=== PATIENT | female | born 1995 ===

== ENCOUNTER 2022-12-18 08:28 | Emergency (ER) | payer SELFPAY ==
[~2022-12-18] VITALS: Ht 162.6 cm; Wt 50.0 kg
[2022-12-18 09:48] LABS: ALANINE AMINOTRANSFERASE 22 U/L (12-78); ALBUMIN 4.6 G/DL (3.4-5.0); ALBUMIN/GLOBULIN RATIO 1.1 (1.1-1.5); ALKALINE PHOSPHATASE 73 IU/L (46-116); ANION GAP 19 (8-16); ASPARTATE AMINO TRANSFERASE 29 U/L (10-37); BILIRUBIN,TOTAL 0.8 MG/DL (0.1-1.0); BLOOD UREA NITROGEN 5 MG/DL (7-18); BUN/CREATININE RATIO 7.1 (10.0-20.0); CALCIUM 10.1 MG/DL (8.5-10.1); CHLORIDE 102 MMOL/L (99-107); GLUCOSE 151 MG/DL (70-104); LIPASE 133 U/L (73-393); SODIUM 139 MMOL/L (135-145); TOTAL CARBON DIOXIDE 17.6 MMOL/L (24-32); TOTAL PROTEIN 8.8 G/DL (6.4-8.2); eGFR > 90 ML/MIN
[2022-12-18 09:51] LABS: POTASSIUM 2.9 MMOL/L (3.5-5.1)
[2022-12-18 10:30] LABS: BASOPHILS % (AUTO) 0.1 % (0-1); EOSINOPHILS % (AUTO) 0 % (0-6); HEMATOCRIT 42.7 % (35.0-45.0); LYMPHOCYTES # (AUTO) 0.8 X10'3 (1.1-4.8); LYMPHOCYTES % (AUTO) 6.5 % (21-51); MEAN CORPUSCULAR HEMOGLOBIN 29.2 PG (27.0-31.0); MEAN CORPUSCULAR HGB CONC 32.9 g/dL (33.0-36.5); MEAN CORPUSCULAR VOLUME 88.9 FL (78-98); MEAN PLATELET VOLUME 8.4 FL (7.4-10.4); MONOCYTES # (AUTO) 0.3 X10'3 (0-0.9); MONOCYTES % (AUTO) 2.7 % (2-12); NEUTROPHILS # (AUTO) 11.1 X10'3 (1.8-7.7); NEUTROPHILS % (AUTO) 90.7 % (42-75); PLATELET COUNT 312 X10'3 (140-440); RED CELL DISTRIBUTION WIDTH 13.4 % (11.5-14.5); WHITE BLOOD COUNT 12.2 X10'3 (4.5-11.0)
[2022-12-18] MEDS ORDERED: CAPSAICIN 56.6 GM CREAM..G. TP STA (11:01)
[2022-12-18] MEDS ORDERED: haloperidol lactate 5mg/ml inj IM ONE (11:05)
[2022-12-18] MEDS ORDERED: potassium Cl 40MEQ/1/2NS 520ml 520 ML IV ONE (11:05)
[2022-12-18] MEDS ORDERED: LORazepam 2 mg/ml vial IV ONE (11:05)
[2022-12-18] MEDS ORDERED: potassium Cl 20 mEq SR tablet PO ONE (11:05)
[2022-12-18] MEDS ORDERED: normal saline 1000ML IV soln IV ONE (11:05)
[2022-12-18] MEDS ORDERED: ondansetron/PF 4mg/2ml inj IV ONE (11:05)
--- NOTE | 2022-12-18 11:28 | NUR ---
Updated Patient's mother Judith. Informed patients boyfriend to update mother of patient as needed
[2022-12-18 11:59] LABS: CLARITY,URINE SLIGHTLY CLOUDY (Clear); COLOR,URINE YELLOW (Yellow); GLUCOSE, URINE NEGATIVE (Neg); KETONES,URINE >=80 mg/dl (Neg); LEUKOCYTE ESTERASE ,URINE NEGATIVE (Neg); NITRITES, URINE NEGATIVE (Neg); OCCULT BLOOD,URINE SMALL (Neg); PROTEIN,URINE 30 mg/dl (Neg); UROBILINOGEN,URINE 0.2 E.U/dL (0.2-1.0)
[2022-12-18 12:01] LABS: URINE HCG NEGATIVE (NEG)
[2022-12-18 12:06] LABS: UA COLLECTION TYPE CLN CATCH MIDSTREAM
[2022-12-18 12:08] LABS: MUCUS STRANDS MANY /LPF (Neg); SQUAMOUS EPITHELIAL CELL,UR MANY /LPF (FEW)
[2022-12-18 12:09] LABS: BACTERIA,URINE 2+ /HPF (Neg); HYALINE CASTS 0-3 /LPF (NEGATIVE)
[2022-12-18 12:11] LABS: WBC,URINE 0-4 /HPF (0-4)
--- NOTE | 2022-12-18 12:56 | NUR ---
patient on CR monitoring of IV K
[2022-12-18] MEDS ORDERED: CAPS60CR6 TP (15:40)
[2022-12-18] MEDS ORDERED: METO5TAB98 PO (15:40)
[2022-12-18] MEDS ORDERED: PROC25SU31 RC (15:40)
[2022-12-18 16:40] VITALS: BP 118/72
== END 2022-12-18 16:42 | disposition home or self-care (01) ==
LOC: ER 08:29
DX: R11.15 Cyclical vomiting syndrome unrelated to migraine (principal); Z87.19 Personal history of other diseases of the digestive system
CPT/HCPCS: 36415; 80053; 81001; 81025; 83690; 85025; 96365; 96366; 96372; 96375; 99284; J1630; J2060; J2405; J3480; J7030